=== PATIENT | male | born 1960 | race Caucasian/White ===

== ENCOUNTER 2022-02-16 13:58 | Emergency (ER) | payer BC, SELFPAY ==
[2022-02-16] VITALS (28 sets, daily range): BP systolic 116–133; BP diastolic 61–79; PULSE 51–90; RESP 16–20; TEMP 36.6; O2SAT 95–100
--- NOTE | ~2022-02-16 | CT_ITS ---
EXAMINATION: CTA chest abdomen pelvis DATE: 02/16/2022 14:59 CDT INDICATION: Sudden onset of abdominal pain. History of aneurysm. TECHNIQUE: Computed tomographic angiography (CTA) of the chest, abdomen, and pelvis was performed wit hout and with 100 mL Omnipaque-350 intravenous contrast. The dose-length product was 966.29 mGy-cm. M aximum intensity projection 3D-reconstructions of the aorta and other arteries were constructed by heydi farias technologist on a separate workstation. Automated exposure control and iterative reconstruction oscar hnique were employed. COMPARISON: CT dated 08/13/2019. FINDINGS: CHEST CTA: Aorta is within normal limits without evidence for aneurysm or dissection. There is mild atherosclero sis. Heart size normal. No significant pleural or pericardial effusion. There are gland is normal. No thoracic lymphadenopathy. No endobronchial lesions. No focal airspace consolidation. No pneumothorax . There is a 2-3 mm left upper lobe nodule, image 31, likely benign. ABDOMEN AND PELVIS CTA: No significant vascular abnormality. The liver, pancreas, adrenal glands and right kidney are unremar kable. There is a small subcentimeter cyst of the left kidney. There are calcified granulomas of the spleen. Gallbladder is present. Nonobstructive bowel gas pattern. There are surgical changes of previ ous ventral abdominal wall hernia repair. No lymphadenopathy. Gallbladder is present. Normal appendix . No abnormal pelvic masses or fluid collections. No free air or free fluid. Moderate lumbar spondylo sis. No focal lytic or blastic lesions. IMPRESSION: 1. No acute abnormality of the chest, abdomen or pelvis. Reviewed, dictated and finalized at location A.
[2022-02-16 14:20] LABS: Basophils Absolute Auto 0.1 K/mm3 (0.0-0.1); Basophils Percent Auto 0.5 % (0.2-1.2); Eosinophils Absolute Auto 0.2 K/mm3 (0-0.3); Eosinophils Percent Auto 0.8 % (0-4.4); Hematocrit 42.3 % (42.0-52.0); Hemoglobin 14.8 g/dL (14.0-18.0); Immature Granulocyte Absolute 0.08 K/mm3 (0.00-0.031); Immature Granulocyte Percent A 0.5 % (0-0.5); Lymphocytes Absolute Auto 1.65 K/mm3 (0.9-3.2); Lymphocytes Percent Auto 9.3 % (18.3-44.2); Mean Corpuscular Hemoglobin 30.3 pg (26-34); Mean Corpuscular Volume 86.5 fl (80-100); Mean Platelet Volume 9.2 fl (7.4-10.4); Monocytes Absolute Auto 0.9 K/mm3 (0.1-0.6); Monocytes Percent Auto 5.3 % (2.6-8.5); Neutrophils Absolute Auto 14.8 K/mm3 (1.3-6.7); Neutrophils Percent Auto 83.6 % (45.5-73.1); Platelet Count Result 374 k/mm3 (150-375); Red Blood Count 4.89 M/mm3 (4.6-6.20); Red Cell Distribution Width 12.1 % (11.5-14.5); White Blood Count 17.7 K/mm3 (4.5-10.0)
[2022-02-16 14:30] LABS: Alanine Aminotransferase 21 U/L (6-50); Albumin Level 4.4 g/dL (3.5-5.1); Alkaline Phosphatase 89 U/L (38-126); Anion Gap 8 mmol/L (8-16); Aspartate Amino Transferase 33 U/L (17-59); Bilirubin,Total 0.9 mg/dL (0.2-1.3); Blood Urea Nitrogen 16 mg/dL (9-20); Calcium 10.2 mg/dL (8.4-10.2); Carbon Dioxide 23 mmol/L (22-30); Chloride 108 mmol/L (98-107); Estimated CRCL calculation 76 ml/min; Estimated Glomerular Filt Rate > 60; Glucose 108 mg/dL (65-110); Lipase 97 U/L (23-300); Potassium 3.6 mmol/L (3.4-5.0); Sodium 139 mmol/L (137-145)
[2022-02-16] MEDS: MORPHINE SULFATE (*CRX) 4 MG/ML INJ IV PUSH (14:43)
--- NOTE | 2022-02-16 14:54 | ED.ABDPAIN ---
HPI - Abdominal Pain General Chief Complaint: Abdominal Pain Stated Complaint: abd pain Time Seen by Provider: 02/16/22 14:10 History of Present Illness HPI narrative: 61-year-old male with history of colon cancer and aortic aneurysm presents here stating that he had severe sudden pain in his epigastric region/right side that seems to be going to his back which started several hours ago, states that he is feeling weak all over, no focal numbness or weakness other than some feeling of tingling in both of his legs. No nausea or vomiting, no chest pain or shortness of breath. Has not taken anything for symptoms yet. Related Data Home Medications Medication Instructions Recorded Confirmed escitalopram oxalate 10 mg tablet 10 mg PO DAILY 08/13/19 08/13/19 gabapentin 300 mg capsule 600 mg PO HS 08/13/19 08/13/19 isosorbide mononitrate 30 mg 30 mg PO DAILY 08/13/19 08/13/19 tablet,extended release 24 hr meloxicam 15 mg tablet 15 mg PO DAILY PRN Pain (Scale 08/13/19 08/13/19 Score 7-10) meloxicam 7.5 mg tablet 7.5 mg PO DAILY PRN Pain (Scale 08/13/19 08/13/19 Score 4-6) tamsulosin 0.4 mg capsule 0.4 mg PO DAILY 08/13/19 08/13/19 Allergies Allergy/AdvReac Type Severity Reaction Status Date / Time Penicillins Allergy Unknown Unknown Verified 02/16/22 14:08 tramadol Allergy Unknown Hives / Verified 02/16/22 14:08 Red Face Review of Systems Review of Systems: CONST: Malaise HEENT: No sore throat C/V: No chest pain RESP: No shortness of breath GI: Reports abdominal pain : No dysuria. M/S: No joint pain. SKIN: No rash. NEURO: Sensation tingling in both feet PSYCH: [No depression] [facility] Past Medical History Medical History (Updated 02/16/22 @ 17:16 by Idania Draper MD) Back fracture CAD (coronary artery disease) Colorectal cancer Heart attack Hernia History of angina HTN (hypertension) Hx of myocardial infarction 2001:2004 Kidney stones Surgical History Surgical History History of cardiac catheterization History of hernia repair Family History Family History Other Unknown family medical history Social History Social History Smoking packs per day: 0.75 Smoking cigarettes per day: 15.0 Smoking status: Current every day smoker Tobacco type: cigarettes Second hand tobacco smoke exposure: Yes Alcohol intake: never Substance use: unknown Substance use type: does not use Gender identity (if verbalized by the patient): Male Spiritual care concerns: No Agree to blood products: No Exam Narrative: EXAMINATION OF ORGAN SYSTEMS/BODY AREAS: Constitutional: Vital signs per nursing GENERAL: Appears uncomfortable in the bed HEAD: Normal with no signs of head trauma. EYES: EOMI, conjunctiva normal ENT: Hearing grossly intact LUNGS: Nonlabored breathing. HEART: [Regular rate and rhythm] ABD: [Soft], [tender to palpation] right upper quadrant/right flank EXT: Normal range of motion. Bilateral radial pulses equal, DP pulses equal SKIN: [No rashes or lesions.] NEURO: [Alert and oriented x 3. No gross focal sensory or strength deficits.] PSYCH: Normal affect Course Vital Signs Vital signs: Vital Signs Temperature 97.9 F 02/16/22 14:01 Pulse Rate 56 L 02/16/22 14:01 Respiratory Rate 16 02/16/22 14:01 Blood Pressure 116/65 02/16/22 14:01 Pulse Oximetry 99 02/16/22 14:01 Oxygen Delivery Room Air 02/16/22 14:01 Temperature 97.9 F 02/16/22 14:01 Pulse Rate 53 L 02/16/22 18:34 Respiratory Rate 20 02/16/22 18:34 Blood Pressure 130/70 02/16/22 18:34 Pulse Oximetry 99 02/16/22 18:34 Oxygen Delivery Room Air 02/16/22 14:01 MDM - Abdominal Pain MDM Narrative Medical decision making narrative: 61-year-old male presenting with sudden onset right sided pain, vital stable, exam shows
[2022-02-16 15:13] LABS: Appearance Urine Slightly Cloudy (Clear); Bilirubin Urine 1+ (Negative); Blood Urine Negative (Negative); Color Urine Yellow (Yellow); Glucose Urine UA Negative (Negative); Ketones Urine Negative (Negative); Leukocyte Esterase Ur Negative LEU/UL (Negative); Nitrate Urine Negative (Negative); Protein Urine Trace mg/dL (Negative); Specific Grav Ur 1.025 (1.001-1.035); Urobilinogen Urine 0.2 mg/dL (<2.0); pH Urine 5.5 (5.0-9.0)
[2022-02-16 15:19] LABS: Bacteria Urine Trace /hpf; Mucus Urine Heavy /lpf; WBC Urine 0-3 /hpf
[2022-02-16 15:20] LABS: INR 1.1; Prothrombin Time 13.6 Seconds (11.1-14.7)
[2022-02-16 15:21] LABS: Add Urine Microscopic? YES
[2022-02-16 15:21] LABS: Partial Thromboplastin Time 28.8 SECONDS (22.3-36.8)
[2022-02-16] MEDS: HYDROcodone/acetaminophen (*CRX) 5-325 MG TABLET 1 TAB PO (17:20)
[2022-02-16] MEDS: KETOROLAC 15 MG/ML VIAL (*BKC) IV PUSH (17:20)
== END 2022-02-16 18:35 | disposition home or self-care (01) ==
PROVIDERS: Emergency Medicine; Emergency Provider Emergency Medicine
DX: R10.13 Epigastric pain (principal); I25.10 Atherosclerotic heart disease of native coronary artery without angina pectoris; I25.2 Old myocardial infarction; I10 Essential (primary) hypertension; Z87.442 Personal history of urinary calculi; Z85.038 Personal history of other malignant neoplasm of large intestine; F17.210 Nicotine dependence, cigarettes, uncomplicated
CPT/HCPCS: 36415; 71275; 74174; 80053; 81001; 83690; 85025; 85610; 85730; 96374; 96375; 99284; A9270; J1885; J2270; Q9967